=== PATIENT | male | born 1970 | race Caucasian/White ===

== ENCOUNTER 2016-10-05 07:17 | Emergency (ER) | payer OTHER ==
[2016-10-05 07:26] VITALS: BP 170/62
== END 2016-10-05 09:56 | disposition home or self-care (01) ==
LOC: ED 07:17
DX: L03.011 Cellulitis of right finger (principal); I10 Essential (primary) hypertension; F32.9 Major depressive disorder, single episode, unspecified; Z88.1 Allergy status to other antibiotic agents
CPT/HCPCS: J2001; Q0092